=== PATIENT | male | born 1955 | race Caucasian/White ===

== ENCOUNTER → 2017-08-08 14:11 | Outpatient (CLI) | payer OTHER, SELFPAY ==
--- NOTE | 2017-08-08 14:13 | XR_ITS ---
XR knee LT 3V HISTORY: ITS.REASON: Left Knee Pain ORDERING PHYSICIAN: MEENA Bonilla PATIENT AGE: 62 years COMPARISON: None FINDINGS: No fracture or dislocation. No lytic or blastic change. Normal mineralization. The joint spaces are well-preserved. There is minimal spurring along the lateral tibial spine No other significant findings IMPRESSION: No acute finding. Minimal degenerative change with spurring along the medial tibial spine
== END ==
PROVIDERS: PCP Physician Assistant; Visit Provider Physician Assistant
DX: M25.562 Pain in left knee (principal)
CPT/HCPCS: 73562

== ENCOUNTER → 2018-03-01 09:16 | Outpatient (CLI) | payer OTHER, SELFPAY ==
[2018-03-01 14:05] LABS: Alanine Aminotransferase 51 U/L (12-78); Albumin Level 3.9 gm/dL (3.4-5.0); Albumin/Globulin Ratio 1.2 (1.1-1.8); Alkaline Phosphatase 65 U/L (46-116); Anion Gap 12.7 mEq/L (5-15); Aspartate Amino Transferase 30 U/L (15-37); Bilirubin,Total 1.5 mg/dL (0.2-1.0); Blood Urea Nitrogen 18 mg/dL (7-18); Calcium 9.2 mg/dL (8.5-10.1); Carbon Dioxide 29 mmol/L (21.0-32.0); Chloride 104 mmol/L (98-107); Chol/HDL Ratio 4.9 (1-3.5); Cholesterol 200 mg/dL (140-200); Creatinine,Serum 1.21 mg/dL (0.70-1.30); Estimated Glomerular Filt Rate 60 ml/min (>60); GFR (African American) 73 ML/MIN (>60); Globulin 3.2 gm/dl (1.3-3.2); Glucose 162 mg/dL (74-106); HDL Cholesterol 41 mg/dL (27-67); LDL Cholesterol 114 mg/dL (0-130); Potassium 4.7 mmoL/L (3.5-5.1); Sodium 141 mmol/L (136-145); T4 (Thyroxine) 8.5 ug/dl (4.7-13.3); Thyroid Stimulating Hormone 2.58 uIU/ml (0.358-3.740); Total Protein,Serum 7.1 gm/dL (6.4-8.2); Triglycerides 227 mg/dL (30-200); VLDL Cholesterol 45 mg/dL (0-40)
[2018-03-01 14:13] LABS: Basophils # 0.1 K/mm3 (0-0.2); Basophils % 1.3 % (0.1-2.0); Eosinophils # 0.5 K/mm3 (0.0-0.4); Eosinophils % 4.5 % (0.1-12.0); Hematocrit 50.4 % (42.0-52.0); Hemoglobin 16.3 g/dL (14.1-18.0); Lymphocytes % 28.4 K/mm3 (10-50); Mean Corpuscular HGB Conc 32.3 g/dL (31.8-35.4); Mean Corpuscular Hemoglobin 29.6 pg (27.0-31.2); Mean Corpuscular Volume 91.5 fl (80-94); Monocytes # 0.8 K/mm3 (0.1-1.0); Monocytes % 7.9 % (1.7-9.3); Neutrophils # 6.2 K/mm3 (1.8-7.8); Neutrophils % 57.9 % (37.0-80.0); Platelet Count 297 K/mm3 (142-424); Red Blood Count 5.51 M/mm3 (4.60-6.20); Red Cell Distribution Width 13.3 % (11.5-17.5); White Blood Count 10.7 K/mm3 (4.8-10.8)
[2018-03-03 18:41] LABS: PSA, Free <0.01 ng/mL; Prostate Specific Ag <0.1 ng/mL (0.0-4.0)
== END ==
PROVIDERS: PCP Physician Assistant; Visit Provider Physician Assistant
DX: Z00.00 Encounter for general adult medical examination without abnormal findings (principal)
CPT/HCPCS: 36415; 80053; 80061; 82652; 84153; 84154; 84436; 84443; 85025

== ENCOUNTER → 2018-03-09 09:55 | Outpatient (CLI) | payer OTHER, SELFPAY ==
[2018-03-09 10:37] LABS: Hemoglobin A1C 7.5 % (0.0-7.0)
== END ==
PROVIDERS: PCP Physician Assistant; Visit Provider Physician Assistant
DX: R73.9 Hyperglycemia, unspecified (principal)
CPT/HCPCS: 36415; 83036

== ENCOUNTER → 2018-11-02 19:51 | Outpatient (CLI) | payer MEDICARE, SELFPAY | PROVIDERS: PCP Nurse Practitioner Family; Visit Provider Nurse Practitioner Family | DX: G47.33 Obstructive sleep apnea (adult) (pediatric) (principal) | CPT/HCPCS: 95810 ==

== ENCOUNTER 2019-01-16 09:00 | Outpatient (RCR) | payer MEDICARE, SELFPAY | END 2019-01-22 13:05 | disposition home or self-care (01) | LOC: PT.CARL 09:00 | PROVIDERS: PCP Nurse Practitioner Family; Visit Provider Orthopaedic Surgery Adult Reconstructive Orthopaedic Surgery | DX: M25.571 Pain in right ankle and joints of right foot (principal) | CPT/HCPCS: 97014; 97033; 97035; 97110; 97112; 97140; 97163; G0283 ==

== ENCOUNTER → 2019-04-26 08:41 | Outpatient (CLI) | payer MEDICARE, SELFPAY ==
[2019-04-26 09:56] VITALS: BMI 36.1
--- NOTE | 2019-04-26 16:06 | DIET.NUTRFU ---
Outpatient nutrition counseling by [facility] has been completed under my supervision.
== END ==
PROVIDERS: PCP Family Medicine; Visit Provider Family Medicine
DX: Z71.3 Dietary counseling and surveillance (principal); E11.9 Type 2 diabetes mellitus without complications
CPT/HCPCS: 97802

== ENCOUNTER 2020-05-07 15:33 | Emergency (ER) | payer MEDICARE, SELFPAY ==
[2020-05-07 15:52] VITALS: BP 130/76; PULSE 80; RESP 18; O2SAT 96; BMI 35.4
--- NOTE | 2020-05-07 16:00 | HMH.EDUTC ---
[facility] [place] Clinical Impression: Exposure to COVID-19 virus Disposition: Home, Self-Care Condition on Discharge: Good Instructions: Preventing the Spread of Coronavirus Discharge Instructions Additional Instructions: Drink plenty of fluids. Take tylenol for pain or fever. Return if you begin to have difficulty breathing. Follow up with your regular doctor. GO TO THE ER FOR ANY WORSENING SYMPTOMS Referrals: Rico Warren MD [Primary Care Provider] - Time of Disposition: 16:08 Medical Decision Making - Medical Records Medical records reviewed: No: I reviewed the patient's medical records. - [place] Inquiry Pt receiving controlled substance: No Vital Signs: 05/07/20 15:52 05/07/20 16:16 Temperature 97.9 F Temperature Source Oral Pulse Rate 80 Pulse Rate [Radial] 80 Respiratory Rate 18 18 Blood Pressure 130/76 Blood Pressure [Right Arm] 130/76 Blood Pressure Mean [Right Arm] 94 Blood Pressure Source Automatic Cuff Blood Pressure Source [Right Arm] Automatic Cuff Blood Pressure Position Sitting Blood Pressure Position [Right Arm] Sitting 02 Sat by Pulse Oximetry 96 Oxygen Delivery Method Room Air Room Air Orders (Tests/Meds): ORDERS Category Date Time Status Covid-19 Nasal PCR ([facility]) Routine Lab 05/07/20 15:54 Received [facility] [place] - General Stated complaint: covid test Time Seen by Provider: 05/07/20 16:00 Mode of Arrival: Ambulatory Source of Information: Patient Limitations: No Limitations Description of Symptoms (Recalled from Triage Doc. by RN): covid test HEENT Symptoms (Recalled from RN notes): Yes Resp Symptoms (Recalled from RN notes): No Skin Symptoms (Recalled from RN notes): No MS Symptoms (Recalled from RN notes): No Functional Status (Recalled from RN notes): wnl - History of Present Illness Provider Complaint: He is here to be tested for covid. He denies any symptoms. - Related Data Home Medications Medication Instructions Recorded Confirmed allopurinol 100 mg tablet 100 mg PO ONCE 08/08/17 10/31/17 diclofenac sodium 75 mg 75 mg PO BID 08/08/17 11/01/17 tablet,delayed release lisinopril 20 mg tablet 20 mg PO DAILY tab 08/08/17 10/31/17 verapamil 240 mg 24 hr 240 mg PO DAILY cap 08/08/17 10/31/17 capsule,extended release Previous Rx's Medication Instructions Recorded omeprazole magnesium 20 mg 20 mg PO DAILY #30 tab 03/06/18 tablet,delayed release metformin 500 mg tablet,extended 500 mg PO QPM #30 tab 03/27/18 release 24 hr Allergies Allergy/AdvReac Type Severity Reaction Status Date / Time No Known Allergies Allergy Verified 03/01/18 14:13 - Worker's Comp Is this a Worker's Comp case?: No [facility] History - Hepatitis A Screen Drug use history?: No High risk sexual behaviors?: No History of sexually transmitted infection?: No Currently employed?: No Childcare worker?: No Do you have indoor plumbing?: Yes Do you have electricity?: Yes Attestation statement:: This patient has been screened for Hepatitis A risk factors. I have reviewed the patient's past medical history: Yes Medical History: Reports:: Arrhythmia, Cancer, Hypertension Denies:: Diabetes Mellitus Type 1, Diabetes Mellitus Type 2, Internal Pacemaker, Lung Disease, Seizures Comment: Gout Other Surgeries: Yes: Cancer Surgery, Colonoscopy, Hernia Repair, Other. No: Pacemaker Amputation: No Fractures: No Comment: Vasectomy. Gallbladder - Social History Smoking Status: Never smoker Tobacco Type: smokeless tobacco Alcohol Intake: never Alcohol Intake Frequency:: holidays/special occasions only Substance Use Type: denies use Occupational Status: other Housing: house Family Hx:: Cancer, Heart Attack ROS Obtained: Yes All systems reviewed & no additional complaints - Constitutional Constitutional: Reports system reviewed and no additional complaints, except as docu - Eyes Eyes: Reports system reviewed and no additional complaints,
[2020-05-07 16:16] VITALS: BP 130/76; PULSE 80; RESP 18; TEMP 36.6; O2SAT 96
== END 2020-05-07 16:16 | disposition home or self-care (01) ==
PROVIDERS: Emergency Provider Nurse Practitioner Family; PCP Family Medicine
DX: Z20.828 Contact with and (suspected) exposure to other viral communicable diseases (principal); I10 Essential (primary) hypertension
CPT/HCPCS: 99201; U0003

== ENCOUNTER → 2021-05-29 08:56 | Outpatient (CLI) | payer MEDICARE, SELFPAY ==
--- NOTE | 2021-05-29 09:02 | XR_ITS ---
PROCEDURE: XR FOOT WT BEARING RT 3V CLINICAL INDICATION: pain COMPARISON: No exams were available for comparison FINDINGS: Small accessory center of ossification is present at proximal 1st phalanx laterally. There is some downward tilting of the navicular with mild pes planus. Small calcaneal spur noted. Mild osteoarthritic change of the talonavicular and navicular cuneiform joint. IMPRESSION: Mild pes planus with downward tilting of the navicular with osteoarthritic changes Dictated by: Misael Brown MD 05/29/2021 18:32 Misael Brown MD in [place] 05/29/2021 18:32
--- NOTE | 2021-05-29 09:02 | XR_ITS ---
PROCEDURE: XR FOOT WT BEARING LT 3V CLINICAL INDICATION: pain COMPARISON: No exams were available for comparison FINDINGS: No fracture or dislocation. No lytic or blastic change. There is normal mineralization. Minimal osteoarthritic change 1st MTP joint. Downward tilting of the navicular with mild pes planus and small calcaneal spur noted. Dorsiflexion of the 2nd through 5th toes. Other findings:None. IMPRESSION: Minimal osteoarthritic change 1st MTP joint. Downward tilting of the navicular with mild pes planus and small calcaneal spur noted. Dorsiflexion of the 2nd through 5th toes Dictated by: Misael Brown MD 05/29/2021 18:35 Misael Brown MD in [place] 05/29/2021 18:35
== END ==
PROVIDERS: PCP Family Medicine; Visit Provider Podiatrist
DX: M79.672 Pain in left foot (principal); M79.671 Pain in right foot
CPT/HCPCS: 73630

== ENCOUNTER 2022-01-28 09:30 | Emergency (ER) | payer MEDICARE, SELFPAY ==
--- NOTE | 2022-01-28 09:48 | HMH.EDUTC ---
[facility] [place] Clinical Impression: Sinusitis Qualifiers: Sinusitis location: unspecified location Chronicity: acute Recurrence: non-recurrent Qualified Code(s): J01.90 - Acute sinusitis, unspecified Disposition: Home, Self-Care Condition on Discharge: Good Instructions: DI for Sinusitis Additional Instructions: Drink plenty of fluids. Take tylenol or ibuprofen for pain or fever. Take the medications as directed. Follow up with your regular doctor. GO TO THE ER FOR ANY WORSENING SYMPTOMS Quarantine until you know the results of your covid-19 test. Notify your school or workplace of your results and follow their instructions regarding return to work/school. Prescriptions: Amoxicillin/Potassium Clav [Amox-Clav 875-125 mg Tablet] 1 tab PO BID #20 tab Transmission Status: Received by [facility] Fluticasone Propionate [Flonase 50mcg nasal spray 16gm] 1 spr NS DAILY 30 Days #16 gm Transmission Status: Received by [facility] methylPREDNISolone [Medrol] 4 mg PO DIRECTED 6 Days #21 packet Transmission Status: Received by [facility] Referrals: Rosa Oseguera APRN [Primary Care Provider] - Time of Disposition: 10:12 Medical Decision Making - Medical Records Medical records reviewed: No: I reviewed the patient's medical records. - [place] Inquiry Pt receiving controlled substance: No Vital Signs: 01/28/22 10:04 01/28/22 10:15 Temperature 98.1 F 98.1 F Temperature Source Oral Pulse Rate 82 Pulse Rate [Left] 82 Respiratory Rate 16 16 Blood Pressure 137/78 Blood Pressure [Right Arm] 137/78 Blood Pressure Mean [Right Arm] 97 02 Sat by Pulse Oximetry 97 Orders (Tests/Meds): ORDERS Category Date Time Status Full Resp Panel w/COVID ([facility]) Routine Lab 01/28/22 09:52 Received [facility] [place]PI - General Stated complaint: possible sinus infection Time Seen by Provider: 01/28/22 09:48 - History of Present Illness Provider Complaint: He states that for the past 1 month, he has sinus congestion and sinus drainage. He states that he has been treated by his physician for this twice and it has came right back each time after he finished the medicines. - Related Data Home Medications Medication Instructions Recorded Confirmed allopurinol 100 mg tablet 100 mg PO ONCE 08/08/17 06/02/21 diclofenac sodium 75 mg 75 mg PO BID 08/08/17 06/02/21 tablet,delayed release lisinopril 20 mg tablet 20 mg PO DAILY tab 08/08/17 06/02/21 verapamil 240 mg 24 hr 240 mg PO DAILY cap 08/08/17 06/02/21 capsule,extended release insulin NPH-regular 70-30 U-100 10 unit SQ BID 06/02/21 06/02/21 insulin 100 unit/mL subcutaneous pen simvastatin 20 mg tablet 20 mg PO DAILY 06/02/21 06/02/21 Previous Rx's Medication Instructions Recorded omeprazole magnesium 20 mg 20 mg PO DAILY #30 tab 03/06/18 tablet,delayed release Amoxicillin/Potassium Clav 1 tab PO BID #20 tab 01/28/22 [Amox-Clav 875-125 mg Tablet] Fluticasone Propionate [Flonase 1 spr NS DAILY 30 Days #16 gm 01/28/22 50mcg nasal spray 16gm] methylPREDNISolone [Medrol] 4 mg PO DIRECTED 6 Days #21 01/28/22 packet Allergies Allergy/AdvReac Type Severity Reaction Status Date / Time No Known Allergies Allergy Verified 01/28/22 10:08 [facility] History - Hepatitis A Screen Attestation statement:: This patient has been screened for Hepatitis A risk factors. I have reviewed the patient's past medical history: Yes Medical History: Reports:: Arrhythmia, Cancer, Hypertension Denies:: Diabetes Mellitus Type 1, Diabetes Mellitus Type 2, Internal Pacemaker, Lung Disease, Seizures Comment: Gout Other Surgeries: Yes: Cancer Surgery, Colonoscopy, Hernia Repair, Other. No: Pacemaker Amputation: No Fractures: No Comment: Vasectomy. Gallbladder - Social History Smoking Status: Never smoker Tobacco Type: smokeless tobacco Alcohol Intake: never Alcohol Intake Frequency:: holidays/special o
[2022-01-28 10:04] VITALS: BP 137/78; PULSE 82; RESP 16; TEMP 36.7; O2SAT 97; BMI 34.1
[2022-01-28 10:09] LABS: Adenovirus,PCR Not Detected (NotDetected); Bordetella Pertussis Not Detected (NotDetected); Chlamydophila Pneumoniae, PCR Not Detected (NotDetected); Coronavirus 19, PCR Not Detected (NotDetected); Coronavirus 229E Not Detected (NotDetected); Coronavirus NL63 Not Detected (NotDetected); Coronavirus OC43 Not Detected (NotDetected); Coronovirus HKU1,PCR Not Detected (NotDetected); Human Metapneumovirus Not Detected (NotDetected); Influenza A, PCR Not Detected (NotDetected); Influenza AH1, 2009 Not Detected (NotDetected); Influenza AH1, PCR Not Detected (NotDetected); Influenza AH3,PCR Not Detected (NotDetected); Influenza B, PCR Not Detected (NotDetected); Mycoplasma Pneumoniae, PCR Not Detected (NotDetected); Parainfluenza 1, PCR Not Detected (NotDetected); Parainfluenza 2, PCR Not Detected (NotDetected); Parainfluenza 3, PCR Not Detected (NotDetected); Parainfluenza 4, PCR Not Detected (NotDetected); Respiratory Syncytial Virus Not Detected (NotDetected); Rhinovirus/Enterovirus Not Detected (NotDetected)
[2022-01-28 10:15] VITALS: BP 137/78; PULSE 82; RESP 16; TEMP 36.7
== END 2022-01-28 10:16 | disposition home or self-care (01) ==
LOC: ER 09:35 → UTC 09:36
PROVIDERS: Emergency Provider Nurse Practitioner Family; PCP Nurse Practitioner Family
DX: J01.90 Acute sinusitis, unspecified (principal)
CPT/HCPCS: 87581; 87632; 87798; 99212; C9803; G0463; U0003; U0005

== ENCOUNTER → 2022-02-10 08:15 | Outpatient (CLI) | payer MEDICARE, SELFPAY ==
--- NOTE | 2022-02-10 | CA_ITS ---
FINAL REPORT TECHNIQUE: Color Doppler, duplex Doppler and godwin scale sonography of the bilateral neck arterial vasculature was performed. Velocities were measured in the carotid arteries. Stenosis evaluation based on the validated velocity criteria. CLINICAL HISTORY: .Screening, HTN,DM, Hx-cardiac arrythmia FINDINGS: The peak systolic velocity of the right common carotid artery is 121 cm/s. The peak systolic velocity of the right internal carotid artery is 102 cm/s and end diastolic velocity 31 cm/s. The ICA/CCA ratio is 1.2. A mild amount of plaque is present. The right external carotid artery is patent. The right vertebral artery is patent with antegrade flow. The peak systolic velocity of the left common carotid artery is 92 cm/s. The peak systolic velocity of the left internal carotid artery is 122 cm/s and end diastolic velocity 39 cm/s. The ICA/CCA ratio is 1.4. A mild amount of plaque is present. The left external carotid artery is patent.The left vertebral artery is patent with antegrade flow. Several thyroid nodules are incidentally noted. IMPRESSION: Less than 50% bilateral carotid stenosis. Bilateral patent vertebral arteries with antegrade flow. If indicated, CTA or MRA could further evaluate. Several thyroid nodules incidentally noted. If indicated, thyroid ultrasound may be helpful. Reviewed, Interpreted and Dictated by Guicho Simon III, MD Transcribed by Carola Davila Authenticated and [facility]
--- NOTE | 2022-02-10 08:21 | US_ITS ---
FINAL REPORT CLINICAL HISTORY: SCREENING FOR AAA ESSENTIAL HYPERTENSION FINDINGS: Limited sonographic images were obtained to evaluate the abdominal aorta and iliac arteries. The abdominal aorta measures up to 2.3 cm in greatest dimension. The iliac arteries are within normal limits. IMPRESSION: No evidence of abdominal aortic aneurysm. Reviewed, Interpreted and Dictated by Guicho Simon III, MD Transcribed by Carola Davila Authenticated and [facility]
== END ==
PROVIDERS: PCP Nurse Practitioner Family; Visit Provider Nurse Practitioner Family
DX: I10 Essential (primary) hypertension (principal); Z13.6 Encounter for screening for cardiovascular disorders; R09.89 Other specified symptoms and signs involving the circulatory and respiratory systems
CPT/HCPCS: 76770; 93880

== ENCOUNTER → 2022-02-19 10:29 | Outpatient (CLI) | payer MEDICARE, SELFPAY ==
--- NOTE | 2022-02-19 10:34 | US_ITS ---
FINAL REPORT CLINICAL HISTORY: THYROID NODULE FINDINGS: THYROID ULTRASOUND The right lobe of the thyroid measures 5.1 x 1.9 x 1.8 cm. The left lobe of the thyroid measures 5.6 x 2.5 x 1.5 cm. The isthmus is enlarged at 6 mm. In the right lobe of the thyroid is a 9 x 5 x 5 mm cystic, solid, hypoechoic TI-RADS 3 nodule. A 2nd nodule in the right lobe measures 11 x 8 x 7 mm is solid, hypoechoic consistent with a TI-RADS 4. There is a solid hypoechoic TI-RADS 4 8 x 6 x 7 mm right thyroid nodule. There are several left thyroid nodules. The largest left thyroid nodule measures up to 4.2 x 2.4 cm is heterogeneous, solid and mostly isoechoic consistent with TI-RADS 3. IMPRESSION: Recommend ultrasound-guided biopsy of the dominant left thyroid nodule. Reviewed, Interpreted and Dictated by Guicho Simon III, MD Transcribed by Jaren Vann Authenticated and [facility]
== END ==
PROVIDERS: PCP Nurse Practitioner Family; Visit Provider Nurse Practitioner Family
DX: E04.1 Nontoxic single thyroid nodule (principal)
CPT/HCPCS: 76536

== ENCOUNTER → 2022-02-24 09:22 | Outpatient (CLI) | payer MEDICARE, SELFPAY ==
--- NOTE | 2022-02-24 09:26 | US_ITS ---
FINAL REPORT CLINICAL HISTORY: LEFT THYROID NODULE FNA done by David ROBLEDO FINDINGS: Ultrasound guided thyroid biopsy. HISTORY: . Left thyroid nodule. Attending radiologist: Dr. Simon physician trust administrative assistant: David Arciniega PA-C PROCEDURE: After informed consent was obtained and a time-out was performed, the patient was prepped and draped in usual sterile fashion over the left neck. Utilizing local anesthesia and sterile technique with a 25-gauge needle, access to lesion was oobtained. A total of 4 passes were made. The patient received no conscious sedation. The patient tolerated procedure well and left the department in good condition. IMPRESSION: Status post ultrasound guided biopsy of thyroid without immediate complication. Films reviewed , interpreted and dictated by Dr. Simon. Transcribed by David Arciniega PA-C. Reviewed, Interpreted and Dictated by Guicho Simon III, MD Transcribed by MEENA Cleaning Authenticated and [facility]
== END ==
PROVIDERS: PCP Nurse Practitioner Family; Visit Provider Nurse Practitioner Family
DX: E04.1 Nontoxic single thyroid nodule (principal)
CPT/HCPCS: 10021; 76536; 76942; 88173; 88305

== ENCOUNTER → 2022-05-10 15:18 | Outpatient (CLI) | payer MEDICARE, SELFPAY ==
--- NOTE | 2022-05-10 15:19 | CT_ITS ---
PROCEDURE INFORMATION: Exam: CT Maxillofacial Without Contrast, Sinus Exam date and time: 05/10/2022 3:34 PM Age: 66 years old Clinical indication: Sinusitis; Type not specified TECHNIQUE: Imaging protocol: CT Maxillofacial without contrast. Focus on the sinuses. Radiation optimization: All CT scans at this facility use at least one of these dose optimization techniques: automated exposure control; mA and/or kV adjustment per patient size (includes targeted exams where dose is matched to clinical indication); or iterative reconstruction. COMPARISON: US BIOPSY THYROID 02/24/2022 10:21 AM FINDINGS: There is deviation of the nasal septum to the left by approximately 3 mm. The ostiomeatal units are patent. No evidence of peter bullosa or Clyde air cell. Minimal mucosal thickening within the paranasal sinuses. No fluid levels are evident. Temporal bones are well pneumatized without effusion. Otherwise the regional soft tissue and osseous structures, air and fluid containing structures have a satisfactory appearance. IMPRESSION: 1. Deviation of the nasal septum to the left by approximately 3 mm. 2. Ostiomeatal units are patent. 3. No evidence of peter bullosa or Clyde air cell. 4. Minimal mucosal thickening within the paranasal sinuses. No fluid levels are evident. 5. Temporal bones are well pneumatized without effusion.
== END ==
PROVIDERS: PCP Nurse Practitioner Family; Visit Provider Otolaryngology
DX: J01.90 Acute sinusitis, unspecified (principal); J31.0 Chronic rhinitis; T48.5X5A Adverse effect of other anti-common-cold drugs, initial encounter
CPT/HCPCS: 70486

== ENCOUNTER 2022-09-10 06:12 | Day surgery (SDC) | payer MEDICARE, SELFPAY ==
[2022-09-07 09:50] VITALS: BMI 32.9
[2022-09-10 06:29] VITALS: BP 126/76; PULSE 88; RESP 18; TEMP 36.1; O2SAT 97
[2022-09-10 06:41] LABS: POC Glucose,Bedside 123 (70-110)
[2022-09-10 07:20] VITALS: O2SAT 97
--- NOTE | 2022-09-10 07:57 | P.PCN_ITS ---
Procedure: Date: 09/10/22 Patient Date of :: 1955 Procedure Performed:: Total colonoscopy to terminal ileum with polypectomy using snare and biopsy Indications:: Patient is a 67-year-old male from [facility]. I had performed screening colonoscopy and 2018 and he had a couple of tubular adenomas removed. Recommended repeat colonoscopy 5 years. Performing Provider:: Guicho Sharp MD Referring Provider:: Glendy Oseguera Sedation:: MAC sedation Procedure:: Patient history was obtained and appropriate physical examination was performed. Patient's medications and allergies were reviewed. Informed consent was obtained after explaining the benefits, alternatives, and risks of the procedure including, but not limited to, bleeding, perforation, missed lesions, and adverse reaction to anesthesia medications. Patient was transported to endoscopy procedure room. Patient was connected to monitoring devices. Throughout the procedure the patient's blood pressure, pulse, and oxygen saturations were monitored continuously. Patient identification and planned procedure were verified by the staff. Patient was positioned in lateral decubitus position. Digital anorectal exam was performed. Variable stiffness Olympus colonoscope was inserted and advanced under direct visualization to the cecum. Adequacy of the colonic preparation was noted. The colonoscope was advanced a short distance into the terminal ileum. The colonoscope was then slowly withdrawn while carefully examining the color, texture, anatomy, and integrity of the mucosoa circumferentially. Within the rectum retroflexion was performed. Colonoscope was then withdrawn. Findings:: Colonic preparation was good. He had some degree of pandiverticulosis. I was small adenomatous polyp in the proximal transverse colon removed with cold cutting snare. There was an adjacent polyp removed with cold snare. In the mid transverse colon there were several tiny diminutive polyps 1 removed with snare and 2 removed with biopsy forceps. In the sigmoid colon there was a small diminutive polyp removed with biopsy forceps. Impression: Pandiverticulosis Polyps x6 as noted above Recommendations:: Repeat colonoscopy pending pathology. Likely 3 to 5 years Complications:: None immediately apparent Estimated blood obtained (mL): 2
[2022-09-10 08:00] VITALS: BP 117/71; PULSE 91; RESP 18; TEMP 36.1; O2SAT 93
--- NOTE | 2022-09-10 08:00 | P.PN_ITS ---
[facility] Disclaimer: The information contained in this section may have been updated after the patient was seen, as this information can be updated by other users. Medical History Allergies Chronic maxillary sinusitis Deviated nasal septum Diabetes Ethmoid sinusitis H/O prostate cancer History of gastroesophageal reflux (GERD) HTN (hypertension), benign Hydrocele Knee pain Rhinitis medicamentosa Sinus headache Sleep apnea Sleep apnea Varicose veins of left lower extremity Surgical History H/O: vasectomy History of cholecystectomy History of colonoscopy History of hernia surgery Family History Other No significant family history Social History Smoking Status: Never smoker alcohol intake: never counseling provided: provider counseling and none substance use type: denies use current occupational status: retired Travel in the last 8 weeks: None housing: house [facility] Anesthesia Checklist Patient Identification Patient Identification: Verbal (Name & ) Structural Data Admitted From: Home Planned Operative Procedure/s: colonosscopy Consent for Planned Operative Procedure(s) Verified: Yes Additional verifications Anesthesia Reactions: No Airway Assessment C-Spine Mobility Assessed: Yes TMJ Mobility Assessed: Yes Dentition: Good Dentition Neurological Assessment Level of Consciousness: Awake, Alert and Appropriate Anesthesia Plan Anesthesia Risk discussed: Yes Anesthesia Plan: Verified ASA Class: II Anesthesia Type: MAC
[2022-09-10 08:10] VITALS: BP 120/72; PULSE 75; RESP 16; O2SAT 98
[2022-09-10 08:20] VITALS: BP 123/79; PULSE 75; RESP 16; O2SAT 97
[2022-09-10 08:30] VITALS: BP 137/89; PULSE 69; RESP 17; TEMP 36.4; O2SAT 97
== END 2022-09-10 08:34 | disposition home or self-care (01) ==
PROVIDERS: PCP Nurse Practitioner Family; Visit Provider Surgery
PROC: 0DJD8ZZ Inspection of Lower Intestinal Tract, Via Natural or Artificial Opening Endoscopic (ICD-10-PCS; principal; 2022-09-10 07:30)
DX: Z12.11 Encounter for screening for malignant neoplasm of colon (principal); Z86.010 Personal history of colon polyps; K57.93 Diverticulitis of intestine, part unspecified, without perforation or abscess with bleeding; D12.3 Benign neoplasm of transverse colon; D12.5 Benign neoplasm of sigmoid colon; Z79.899 Other long term (current) drug therapy
CPT/HCPCS: 45380; 45385; 82962

== ENCOUNTER → 2023-03-01 11:08 | Outpatient (CLI) | payer MEDICARE, SELFPAY ==
--- NOTE | 2023-03-01 11:13 | XR_ITS ---
FINAL REPORT CLINICAL HISTORY: foot pain FINDINGS: Right foot Three views were obtained. There is no acute fracture or dislocation. The joint spaces appear normal. There is a moderate plantar spur. Small Abdiaziz deformity is identified. IMPRESSION: Moderate plantar spur. Reviewed, Interpreted and Dictated by Caio Martinez MD Transcribed by Radha Wiggins Authenticated and [facility]
--- NOTE | 2023-03-01 11:13 | XR_ITS ---
FINAL REPORT CLINICAL HISTORY: ankle pain FINDINGS: Right ankle Three views were obtained. There is no acute fracture or dislocation. The joint spaces appear normal. There is a moderate plantar spur. Small Abdiaziz deformity is identified. There are small osteophytes along the anterior margin of the distal tibia. IMPRESSION: Moderate plantar spur. Reviewed, Interpreted and Dictated by Caio Martinez MD Transcribed by Radha Wiggins Authenticated and [facility]
== END ==
LOC: RAD 11:09
PROVIDERS: PCP Family Medicine; Visit Provider Nurse Practitioner Family
DX: M79.671 Pain in right foot (principal); M25.571 Pain in right ankle and joints of right foot
CPT/HCPCS: 73610; 73630

== ENCOUNTER → 2023-03-01 12:55 | Outpatient (POV) | payer MEDICARE, SELFPAY | PROVIDERS: Visit Provider Dermatology | DX: Z00.00 Encounter for general adult medical examination without abnormal findings (principal) ==

== ENCOUNTER → 2023-05-25 16:37 | Outpatient (CLI) | payer MEDICARE, SELFPAY ==
[2023-05-25 18:03] LABS: Hemoglobin A1C 6.7 % (4.0-6.0)
== END ==
PROVIDERS: PCP Family Medicine; Visit Provider Family Medicine
DX: R73.9 Hyperglycemia, unspecified (principal)
CPT/HCPCS: 83036

== ENCOUNTER 2023-07-05 13:48 | Outpatient (CLI) | payer MEDICARE, SELFPAY ==
--- NOTE | 2023-07-05 13:52 | CT_ITS ---
FINAL REPORT TECHNIQUE: Axial CT images were obtained through the sinuses/facial bones. Coronal reformats were obtained. This study was performed with techniques to keep radiation doses as low as reasonably achievable (ALARA). Individualized dose reduction techniques using automated exposure control or adjustment of mA and/or kV according to the patient's size were employed. CLINICAL HISTORY: chronic sinusitis FINDINGS: There is mild mucoperiosteal thickening in the maxillary sinuses. There are no air-fluid levels. There is soft tissue bridging the right ostiomeatal unit. The nasal septum is not significantly deviated. No fractures are identified. IMPRESSION: Chronic maxillary sinusitis. Reviewed, Interpreted and Dictated by Caio Martinez MD Transcribed by Jaren Vann Authenticated and [facility]
== END 2023-07-05 23:59 ==
LOC: RAD 13:48
PROVIDERS: PCP Family Medicine; Visit Provider Otolaryngology
DX: J32.9 Chronic sinusitis, unspecified (principal); F17.220 Nicotine dependence, chewing tobacco, uncomplicated
CPT/HCPCS: 70486

== ENCOUNTER 2023-08-02 19:47 | Outpatient (CLI) | payer MEDICARE, SELFPAY | END 2023-08-02 23:59 | LOC: LAB.DROPOF 19:47 | PROVIDERS: PCP Nurse Practitioner Family; Visit Provider Nurse Practitioner Family | DX: J34.89 Other specified disorders of nose and nasal sinuses (principal); U07.1 COVID-19 | CPT/HCPCS: 87635 ==

== ENCOUNTER 2023-09-05 12:36 | Outpatient (CLI) | payer MEDICARE, SELFPAY | END 2023-09-05 23:59 | LOC: LAB.DROPOF 09-12 12:36 | PROVIDERS: Visit Provider Otolaryngology | DX: J34.89 Other specified disorders of nose and nasal sinuses (principal); B95.62 Methicillin resistant Staphylococcus aureus infection as the cause of diseases classified elsewhere | CPT/HCPCS: 87070 ==

== ENCOUNTER 2023-09-28 11:00 | Outpatient (CLI) | payer MEDICARE, SELFPAY ==
[2023-09-28 16:52] LABS: Chol/HDL Ratio 2.4 (1-3.5); Cholesterol 120 mg/dl (140-200); HDL Cholesterol 49 mg/dl (40-60); Triglycerides 95 mg/dl (30-150); VLDL Cholesterol 19 mg/dL (0-40)
[2023-09-28 17:02] LABS: Direct LDL Cholesterol 52.49 mg/dL (100-129)
[2023-09-28 18:10] LABS: Hemoglobin A1C 7.4 % (4.0-6.0)
== END 2023-09-28 23:59 ==
LOC: LAB.DROPOF 09-29 11:01
PROVIDERS: PCP Family Medicine; Visit Provider Family Medicine
DX: E11.9 Type 2 diabetes mellitus without complications (principal); E78.5 Hyperlipidemia, unspecified; Z79.84 Long term (current) use of oral hypoglycemic drugs
CPT/HCPCS: 80061; 83036

== ENCOUNTER 2023-11-23 09:57 | Outpatient (POV) | payer MEDICARE, SELFPAY ==
--- NOTE | 2023-11-23 10:43 | A.OFFVIS_ITS ---
HPI Data of Consult Patient: new to practice Consult date: 11/23/23 Requesting Physician: Pauline Fontanez APRN Primary Care Provider: Riley Sales MD Consult Narrative Reason for consult: Bilateral knee pain History of present illness: Mr. Lilly is a 68 year old male who presents today as a new patient. He is a referral from Brett Rae's office. Today he rates his pain a 5 out of 10. Patient states his pain is all in his bilateral knees. He states this has been going on for years and progressively worsened over time. Patient denies any prior replacement surgery. He states that the pain is an aching, throbbing sensation that is worse with increased activity. He does state the pain interferes with his ability perform activities of daily living. Patient does state in the past that he has had injections that did provide significant relief however it did increase his blood sugar up towards 304 100 and he stopped due to this. Patient does state it has been at least a couple of years since having injections. He denies any prior physical therapy. Patient does have significant varicose veins in his bilateral legs. Patient is interested in any help we may be able to provide. He does take Tylenol and does use diclofenac gel which he states works well. His Carroll has been reviewed and is appropriate. CC: Pauline Fontanez APRN [facility] Disclaimer: The information contained in this section may have been updated after the patient was seen, as this information can be updated by other users. Medical History Nasal crusting Nasal drainage Tobacco use Chronic sinusitis, unspecified The acute phase has cleared. He did have a resistant Staph aureus that responded well to antibiotic management. I mention in the future he should avoid amoxicillin or penicillin as a first-line agent. Diabetes Sleep apnea Sinus headache History of gastroesophageal reflux (GERD) Allergies Chronic maxillary sinusitis Deviated nasal septum Ethmoid sinusitis Rhinitis medicamentosa HTN (hypertension), benign Sleep apnea H/O prostate cancer Sinusitis Exposure to COVID-19 virus Varicose veins of left lower extremity Knee pain Surgical History Hydrocele History of bladder surgery H/O prostatectomy H/O: vasectomy History of hernia surgery History of cholecystectomy History of colonoscopy Family History Mother Cancer Father Heart attack Grandfather Heart attack Other No significant family history Social History Smoking Status: Current every day smoker tobacco type: smokeless tobacco alcohol intake: current alcohol intake frequency: holidays/special occasions only counseling provided: none substance use type: denies use current occupational status: retired Travel in the last 8 weeks: None household members: spouse and other details: mother in law housing: house Review of Systems Review of Systems Review of systems:: pertinent systems reviewed and negative unless documented below Review of systems (narrative): Review of Systems: General: No recent weight changes, no fever, no sleep disturbances Respiratory: No cough, no shortness of air, no recurring pulmonary infections Cardiovascular/peripheral vascular: No chest pain, no palpitations, no edema, no shortness of breath Gastrointestinal: No new onset incontinence, normal bowel movements reported Genitourinary: No new onset incontinence Musculoskeletal: Bilateral knee pain Psychiatric: [Normal mood/affect] Neurological: [Denies weakness in extremities], [denies balance issues] Meds Home Medications and Allergies Home Medications Medication Instructions Recorded Confirmed Type flash glucose scanning reader #1 ea 01/28/23 11/04/23 History ([employer]ift Jong 2 [place]) azelastine 205.5 mcg (0.15 %) 2 spray intranasal DAILY #30 mL 06/10/23 11/04/23 Rx nasal spray allopurinol 100 mg tablet 100 mg PO ONCE gout 90 days #90 09/12/23 11/04/23 Rx tabs famotidine 40 mg tablet 40 mg PO HS . 90 days #90 tabs 09/12/23 11/04/23 Rx lisinopril 20 mg tablet 20 mg PO DAILY bp 30 days #90 tabs 09/12/23 11/04/23 Rx simvastatin 20 mg tablet 20 mg PO DAILY Cholesterol 90 days 09/12/23 11/04/23 Rx #90 tabs verapamil 240 mg 24 hr 240 mg PO DAILY bp 30 days #90 caps 09/12/23 11/04/23 Rx capsule,extended release metformin 500 mg tablet,extended 1,000 mg (2 x 500 mg) PO BID 09/29/23 11/04/23 Rx release 24 hr Diabetes 90 days #360 tabs flash glucose sensor (FreeStyle #2 ea 11/21/23 Rx Jong 2 Sensor kit) New Prescriptions to Start Prescriptions: Allergies Allergy/AdvReac Type Severity Reaction Status Date / Time No Known Allergies Allergy Verified 11/04/23 09:15 Objective Narrative: Physical Exam: General: Alert and oriented x3, no acute distress, pleasant and cooperative Lungs: Respirations even and unlabored, symmetrical chest expansion Eyes: PERRL Musculoskeletal: Flexion and extension of bilateral knees somewhat guarded secondary to pain, [antalgic gait noted] Neurological: Speech clear, no gross sensory deficit Assessment and Plan *Assessment and plan (1) Bilateral knee pain: Status: Acute Qualifiers: Chronicity: chronic Qualified Code(s): M25.561 - Pain in right knee; M25.562 - Pain in left knee; G89.29 - Other chronic pain Category: Medical Code(s): M25.561 - Pain in right knee; M25.562 - Pain in left knee Plan Patient is experiencing significant pain throughout his bilateral knees with limited range of motion. I have discussed with patient that he may benefit from intra-articular knee injections however he is very concerned that his sugar will go up again. I will send in prescriptions of the diclofenac gel as well as send in a prescription of diclofenac 50 mg twice daily and provide a 2-week supply of this medication. Patient denied any heart or kidney issues. Patient was counseled to discontinue all other NSAIDs while taking this medication and to take it with food to minimize GI upset. Patient will return to clinic in 1 month for reevaluation of symptoms and plan of care. Patient has been instructed to contact the clinic with any concerns before the next appointment. Dr. Vela has reviewed this note and agrees with this plan of care. This note was dictated using voice recognition software and make contain errors or omissions.
[2023-11-23 11:26] VITALS: BP 143/72; PULSE 84; RESP 18; O2SAT 97; BMI 31.7
== END 2023-11-23 23:59 | disposition home or self-care (01) ==
PROVIDERS: PCP Family Medicine; Visit Provider Nurse Practitioner Family
DX: M25.561 Pain in right knee (principal); M25.562 Pain in left knee; G89.29 Other chronic pain
CPT/HCPCS: 99202; G0463

== ENCOUNTER 2024-01-03 13:29 | Outpatient (CLI) | payer MEDICARE, SELFPAY ==
[2024-01-03 17:45] LABS: Hemoglobin A1C 6.8 % (4.0-6.0)
== END 2024-01-03 23:59 | disposition home or self-care (01) ==
LOC: LAB.DROPOF 01-04 13:30
PROVIDERS: PCP Family Medicine; Visit Provider Family Medicine
DX: E11.9 Type 2 diabetes mellitus without complications (principal); E11.69 Type 2 diabetes mellitus with other specified complication
CPT/HCPCS: 83036

== ENCOUNTER 2024-04-02 09:10 | Emergency (ER) | payer MEDICARE, SELFPAY ==
[2024-04-02 09:30] VITALS: BP 151/74; PULSE 80; RESP 20; TEMP 36.5; O2SAT 97; BMI 32.7
[2024-04-02 09:37] LABS: Microscopic, Urine URINE MICROSCOPIC (MICROSCOPIC)
[2024-04-02 09:53] LABS: Appearance,Urine CLEAR (Clear); Bilirubin,Urine Negative (Negative); Blood, Urine Negative (Negative); Color,Urine YELLOW (Yellow); Glucose,Urine (UA) 1+ (Negative); Ketones,Urine Negative (Negative); Leukocyte Esterase,Urine Negative (Negative); Nitrate,Urine Negative (Negative); Protein,Urine Negative (Negative); Urobilinogen,Urine 0.2 EU/dl (0.2)
--- NOTE | 2024-04-02 09:53 | XR_ITS ---
PROCEDURE INFORMATION: Exam: XR Lumbosacral Spine Exam date and time: 04/02/2024 10:02 AM Age: 68 years old Clinical indication: Low back pain; Additional info: Pain, no injury. Radiates down left leg, nki TECHNIQUE: Imaging protocol: Radiologic exam of the lumbosacral spine. Views: 4 or 5 views. COMPARISON: No relevant prior studies available. FINDINGS: Bones/joints: No acute fracture or malalignment. Mild levocurvature. No worrisome lytic or blastic osseous lesion. Moderate multilevel disc space narrowing, osteophyte formation, bilateral facet hypertrophy. Soft tissues: No soft tissue abnormality. IMPRESSION: 1. No acute fracture or malaligment. 2. Moderate multilevel degenerative change.
--- NOTE | 2024-04-02 09:55 | EXP.UTC ---
Discharge Plan Disposition Patient Disposition: Home, Self-Care Condition: Good Prescriptions Prescriptions: New lidocaine 5 % adhesive patch,medicated 1 patch topical DAILY PRN (Reason: pain) Qty: 15 0RF Rx Instructions: leave on most painful area for up to 12 hrs then remove for 12 hours No Action (DME) FreeStyle Jong 2 [place] Misc See Rx Instructions .ROUTE .MEDSUPPLY Qty: 1 Rx Instructions: As directed (DME) FreeStyle Jong 2 Sensor Kit See Rx Instructions .ROUTE .COMPLEX Qty: 2 3RF Dose Instruction: USE DIRECTED Rx Instructions: USE DIRECTED lisinopril 20 mg tablet 20 mg PO DAILY Patient Comments: TAKE 1 TABLET BY MOUTH ONCE DAILY FOR BLOOD PRESSURE famotidine 40 mg tablet 40 mg PO DAILY allopurinol 100 mg tablet 100 mg PO DAILY simvastatin 20 mg tablet 20 mg PO DAILY Patient Comments: TAKE 1 TABLET BY MOUTH ONCE DAILY FOR CHOLESTEROL FOR 90 DAYS metformin 500 mg tablet extended release 24 hr 500 mg PO DAILY verapamil 240 mg capsule,ext rel. pellets 24 hr 240 mg PO DAILY Referrals Follow up/Referrals: Riley Sales MD [Primary Care Provider] - See instructions Activity Restrictions/Add. Instructions Additional Instructions/Restrictions: *Ibuprofen annemarie 6 hours with meal as needed for pain/inflammation if you can take it *Remember you had a Toradol shot in the clinic today, which is similar to Motrin so do not take for the next 8-10 hours *Not additional anti-inflammatory like motrin, aleve, advil with the above amount of ibuprofen. You can still take Tylenol every 4 hours as needed if you need something else for pain Use lidocaine patch as prescribed Over the counter muscle rubs like biofreeze may help *Keep this area active, no movement leads to more stiffness, However take it easy and avoid heavy lifting pushing or pulling *Follow up with you family doctor if no improvement for further treatment ? Clinical Impressions Clinical Impression: Low back pain Qualifiers: Chronicity: unspecified Back pain laterality: left Sciatica presence: with sciatica Sciatica laterality: sciatica of left side Qualified Code(s): M54.42 - Lumbago with sciatica, left side Instructions Patient Instructions: DI for Sciatica, DI for Back Pain With Sciatica, Lidocaine Transdermal Patch Print Language Print Language: Tamazight Discharge ED Provider: Lillie Chan [facility] [place] HPI General Stated complaint: severe back pain Mode of Arrival: Ambulatory Source of Information: Patient Limitations: No Limitations Time Seen by Provider: 04/02/24 09:35 Description of Symptoms (Recalled from Triage Doc. by RN): PATIENT C/O MID-LOWER BACK PAIN THAT RADIATES DOWN LEFT LEG THAT STARTED 2 DAYS AGO, NO KNOWN INJURY HEENT Symptoms (Recalled from RN notes): No Resp Symptoms (Recalled from RN notes): No Skin Symptoms (Recalled from RN notes): No MS Symptoms (Recalled from RN notes): Yes Functional Status (Recalled from RN notes): WNL History of Present Illness Provider Complaint: Patient states he was in the kitchen and turned and started having pain in his lower back that would shoot across his lower back and now it is going into his left buttock/hip area and his upper leg worse when he walks or moves certain ways Denies known injury and denies loss of control of bowel or bladder Related Data Home Medications ?Medication ?Instructions ?Recorded ?Confirmed flash glucose scanning reader #1 ea 01/28/23 04/02/24 ([employer] Jong 2 [place]) allopurinol 100 mg tablet 100 mg PO DAILY 04/02/24 04/02/24 famotidine 40 mg tablet 40 mg PO DAILY 04/02/24 04/02/24 lisinopril 20 mg tablet 20 mg PO DAILY 04/02/24 04/02/24 metformin 500 mg tablet,extended 500 mg PO DAILY 04/02/24 04/02/24 release 24 hr simvastatin 20 mg tablet 20 mg PO DAILY 04/02/24 04/02/24 verapamil 240 mg 24 hr 240 mg PO DAILY 04/02/24 04/02/24 capsule,extended release Previous Rx's ?Medication ?Instructions ?Recorded flash glucose sensor (OmetriaStyle #2 ea 12/23/23 Jong 2 Sensor kit) lidocaine 5 % topical patch 1 patch topical DAILY PRN pain #15 04/02/24 ea Allergies Allergy/AdvReac Type Severity Reaction Status Date / Time No Known Allergies Allergy Verified 03/08/24 14:01 Worker's Comp Is this a Worker's Comp case?: No [facility] Disclaimer: The information contained in this section may have been updated after the patient was seen, as this information can be updated by other users. Medical History Nasal crusting Nasal drainage Tobacco use Chronic sinusitis, unspecified The acute phase has cleared. He did have a resistant Staph aureus that responded well to antibiotic management. I mention in the future he should avoid amoxicillin or penicillin as a first-line agent. Diabetes Sleep apnea Sinus headache History of gastroesophageal reflux (GERD) Allergies Chronic maxillary sinusitis Deviated nasal septum Ethmoid sinusitis Rhinitis medicamentosa HTN (hypertension), benign Sleep apnea H/O prostate cancer Sinusitis Exposure to COVID-19 virus Varicose veins of left lower extremity Knee pain Surgical History Hydrocele History of bladder surgery H/O prostatectomy H/O: vasectomy History of hernia surgery History of cholecystectomy History of colonoscopy Family History Mother Cancer Father Heart attack Grandfather Heart attack Other No significant family history Social History Smoking Status: Current every day smoker tobacco type: smokeless tobacco alcohol intake: current alcohol intake frequency: holidays/special occasions only counseling provided: none substance use type: denies use current occupational status: retired Travel in the last 8 weeks: None household members: spouse and other details: mother in law housing: house ROS Obtained: Yes All systems reviewed & no additional complaints except as documented and Yes Systems reviewed as appropriate & no additional complaints except as documented Constitutional Constitutional: Reports system reviewed and no additional complaints, except as documented, Reports as per HPI and Denies fever(s) ENT Ears, Nose, Mouth, and Throat: Reports system reviewed and no additional complaints, except as documented and Reports as per HPI Cardiovascular Cardiovascular: Reports system reviewed and no additional complaints, except as documented and Reports as per HPI Respiratory Respiratory: Reports system reviewed and no additional complaints, except as documented and Reports as per HPI Gastrointestinal Gastrointestingal: Reports system reviewed and no additional complaints, except as documented and as per HPI Musculoskeletal Musculoskeletal: Reports system reviewed and no additional complaints, except as documented, Reports as per HPI and Reports back pain (pain in lower back, that radiates left hip and upper leg) Physical Exam General General appearance: alert and in no apparent distress ENT ENT exam: Present mucous membranes moist Chest Chest inspection: Present normal inspection and symmetric chest wall rise Respiratory Respiratory exam: Present normal lung sounds bilaterally; Absent respiratory distress or wheezes Cardiovascular Cardiovascular exam: Present regular rate, normal rhythm and normal heart sounds Abdominal Exam Abdominal exam: Present soft and normal bowel sounds; Absent distention or tenderness Back Exam Back exam: Present tenderness and sciatic notch tenderness (L) Back 1 view image: 1. reports achy like pain in left lower back area that goes into buttock area and upper leg worse with movement, sitting or laying on that side, Denies known injury Denies loss of control of bowel or bladder Neurological Exam Neurological exam: Present alert, oriented X3 and normal gait Medical Decision Making Medical Records Screening: Per USPSTF and CDC recommendations, given the prevalence of disease in our region, it is our hospital?s policy to screen for HIV and viral Hepatitis for all patients aged 18 and over and those with ongoing risk factors. Carroll Inquiry Pt receiving controlled substance: No Carroll was queried for this patient: No Vital Signs: 04/02/24 09:30 Temperature 97.7 F Temperature Source Oral Pulse Rate [Left Brachial] 80 Respiratory Rate 20 Blood Pressure [Left Arm] 151/74 H Blood Pressure Mean [Left Arm] 99 Blood Pressure Source [Left Arm] Automatic Cuff Blood Pressure Position [Left Arm] Sitting 02 Sat by Pulse Oximetry 97 Oxygen Delivery Method Room Air Lab Data Lab results reviewed: Yes I reviewed the patient's lab results. Orders (Tests/Meds): ORDERS Category Date Time Status Lumbar spine XR 2-3 views [XR lumbar spine 2-3V] Stat Exams 04/02/24 09:53 Ordered Urinalysis and Microscopic Stat Lab 04/02/24 09:34 Received Radiology Data #1: Image(s): L-Spine Image Reviewed: Yes I have reviewed radiologist's interpretation IMPRESSION: 1. No acute fracture or malaligment. 2. Moderate multilevel degenerative change.
[2024-04-02 10:27] LABS: Squamous Epithelial Cell,Urine Occasional #/hpf (0-5); WBC,Urine Occasional #/hpf (0-3)
[2024-04-02] MEDS: METHYLPREDNISOLONE SOD SUCC 125MG VIAL 125 MG IM (11:37)
[2024-04-02] MEDS: KETOROLAC 30MG/ML VIAL 15 MG IM (11:37)
[2024-04-02 11:51] VITALS: BP 151/74; PULSE 80; RESP 20; TEMP 36.5; O2SAT 97
== END 2024-04-02 11:54 | disposition home or self-care (01) ==
PROVIDERS: Emergency Provider Nurse Practitioner; PCP Family Medicine
DX: M54.42 Lumbago with sciatica, left side (principal)
CPT/HCPCS: 72110; 81001; 96372; 99213; G0381; J1885; J2919

== ENCOUNTER 2024-08-14 09:46 | Outpatient (CLI) | payer MEDICARE, SELFPAY ==
[2024-08-14 18:25] LABS: Basophils # 0.2 K/mm3 (0-0.2); Basophils % 1.3 % (0.1-2.0); Eosinophils # 0.3 K/mm3 (0.0-0.4); Eosinophils % 2.4 % (0.1-12.0); Hematocrit 55.4 % (42.0-52.0); Hemoglobin 17.6 g/dL (14.1-18.0); Lymphocytes # 2.5 K/mm3 (0.7-4.5); Mean Corpuscular HGB Conc 31.8 g/dL (31.8-35.4); Mean Corpuscular Hemoglobin 29.2 pg (27.0-31.2); Monocytes # 1.5 K/mm3 (0.1-1.0); Monocytes % 11.7 % (1.7-9.3); Neutrophils # 8.1 K/mm3 (1.8-7.8); Neutrophils % 64.4 % (37.0-80.0); Platelet Count 305 K/mm3 (142-424); Red Blood Count 6.02 M/mm3 (4.60-6.20); Red Cell Distribution Width 13.4 % (11.5-17.5); White Blood Count 12.6 K/mm3 (4.8-10.8)
[2024-08-14 18:54] LABS: Creatinine,Urine Random 26 mg/dL (Not Estab.)
[2024-08-14 19:15] LABS: Microalbumin < 6.000 mg/L (0-16.7)
[2024-08-14 19:37] LABS: Alanine Aminotransferase 27 U/L (12-78); Alkaline Phosphatase 93 U/L (38-126); Anion Gap 17.4 mEq/L (5-15); Aspartate Amino Transferase 28 U/L (17-59); Bilirubin,Total 2.3 mg/dl (0.2-1.3); Blood Urea Nitrogen 15 mg/dl (9-20); Calcium 10.1 mg/dl (8.4-10.2); Carbon Dioxide 26 mmol/L (22.0-30.0); Chloride 101 mmol/L (98-107); Chol/HDL Ratio 2.8 (1-3.5); Cholesterol 138 mg/dl (140-200); Estimated Glomerular Filt Rate 66 ml/min (>60); GFR (African American) 80 ML/MIN (>60); Globulin 2.5 g/dL (1.3-3.2); Glucose 162 mg/dl (74-100); HDL Cholesterol 50 mg/dl (40-60); Potassium 4.4 mmoL/L (3.5-5.1); Sodium 140 mmol/L (136-145); Total Protein,Serum 7.5 g/dl (6.3-8.2); Triglycerides 233 mg/dl (30-150); VLDL Cholesterol 47 mg/dL (0-40)
[2024-08-14 19:48] LABS: Direct LDL Cholesterol 59.15 mg/dL (100-129)
[2024-08-14 20:08] LABS: Prostate Specific Ag Screen < 0.1 ng/ml (0.0-4.0); Thyroid Stimulating Hormone 0.87 uIU/mL (0.465-4.68)
[2024-08-14 20:16] LABS: HIV Combo NEGATIVE (Negative)
[2024-08-14 20:24] LABS: Hepatitis C Ab Qual. W/ RFX NEGATIVE (Negative)
[2024-08-14 23:21] LABS: Hemoglobin A1C 7.8 % (4.0-6.0)
== END 2024-08-14 23:59 | disposition home or self-care (01) ==
LOC: LAB.DROPOF 08-15 09:46
PROVIDERS: PCP Family Medicine; Visit Provider Family Medicine
DX: E11.69 Type 2 diabetes mellitus with other specified complication (principal); Z79.84 Long term (current) use of oral hypoglycemic drugs; E66.9 Obesity, unspecified; Z68.32 Body mass index [BMI] 32.0-32.9, adult; Z11.59 Encounter for screening for other viral diseases
CPT/HCPCS: 80053; 80061; 82043; 82570; 83036; 84443; 85025; 86803; 87389; G0103